=== PATIENT | male | born 1990 | race Caucasian/White ===

== ENCOUNTER 2025-03-02 16:51 | Inpatient (IN) | payer SELFPAY ==
[2025-03-02 17:43] VITALS: BMI 33.0
[2025-03-02] MEDS ORDERED: IBUPROFEN 600 MG TABLET (FP) PO PRN (19:49)
[2025-03-02] MEDS ORDERED: LOPERAMIDE HCL 2 MG CAPSULE PO PRN (19:49)
[2025-03-02] MEDS ORDERED: MAG HYDROX/AL HYDROX/SIMETH 30 ML UNIT-DOSE CUP PO PRN (19:49)
[2025-03-02] MEDS ORDERED: IBUPROFEN 400 MG TABLET (FP) PO PRN (19:49)
[2025-03-02] MEDS ORDERED: BENZOCAINE/MENTHOL (CHLORASEPTIC ) LOZENGE MM PRN (19:49)
[2025-03-02] MEDS ORDERED: POLYETHYLENE GLYCOL (HEALTHYLAX) 3350 17 GM PACKET PO PRN (19:49)
[2025-03-02] MEDS ORDERED: BENZONATATE 200 MG CAPSULE PO PRN (19:49)
[2025-03-02] MEDS ORDERED: ACETAMINOPHEN 325 MG TABLET (FP) PO PRN (19:49)
[2025-03-02] MEDS ORDERED: DICYCLOMINE HCL 10 MG CAPSULE PO PRN (19:49)
[2025-03-02] MEDS ORDERED: guaiFENesin 600 MG TABLET.ER (FP) PO PRN (19:49)
[2025-03-02] MEDS ORDERED: MAGNESIUM HYDROX 2400MG/30ML ORAL SUSPENSION 30 ML CUP PO PRN (19:49)
[2025-03-02] MEDS ORDERED: BISMUTH SUBSALICYLATE 524 MG/30 ML PO PRN (19:49)
[2025-03-02] MEDS ORDERED: NALOXONE (NARCAN) HCL 4 MG/0.1 ML SPRAY NS PRN (19:49)
[2025-03-02] MEDS ORDERED: ONDANSETRON *ODT* 4 MG TABLET ONE (20:09)
[2025-03-02] MEDS: ONDANSETRON *ODT* 4 MG TABLET SL PRN (20:10)
[2025-03-02] MEDS: levETIRAcetam 500 MG TABLET (FP) PO ONE (20:16)
[2025-03-02] MEDS: ASPIRIN 81 MG CHEWABLE TABLETS PO ONE (20:45)
[2025-03-02] MEDS ORDERED: ASPIRIN 81 MG CHEWABLE TABLETS ONE (20:45)
[2025-03-02] MEDS: METHOCARBAMOL 500 MG TABLET PO PRN (21:15)
[2025-03-02] MEDS: hydrOXYzine PAMOATE 25 MG CAPSULE (FP) PO PRN (21:15)
[2025-03-02] MEDS: levETIRAcetam 500 MG TABLET (FP) PO SCH (21:15)
[2025-03-02] MEDS: THIAMINE 100 MG TABLET PO SCH (22:51)
[2025-03-02] MEDS: MELATONIN 5 MG TABLETS PO SCH (22:51)
[2025-03-03] MEDS: PRENATAL VITAMINS W/ FOLIC ACID TABLET (FP) PO SCH (10:26)
[2025-03-03 10:31] LABS: MCHC 33.7 g/dl (32.3-36.5); MEAN CELL VOLUME 91.8 fl (79.0-92.2); MEAN PLT VOLUME 9.8 fl (9.4-12.4); RDW 15.3 % (12.0-15.6)
[2025-03-03 11:06] LABS: GLUCOSE,RANDOM 82 mg/dL (74-106); TOT PROT 7.1 g/dl (6.4-8.2)
[2025-03-03 11:09] LABS: ALK PHOS 83 U/L (40-150)
[2025-03-03 11:12] LABS: CREATININE 0.79 mg/dL (0.55-1.3); SGOT/AST 52 U/L (5-34); SGPT/ALT 67 U/L (0-55)
[2025-03-03 11:13] LABS: CO2 32 mmol/L (21-32)
[2025-03-03] MEDS: levETIRAcetam 500 MG TABLET (FP) PO SCH (23:50)
[2025-03-06] MEDS: PANTOPRAZOLE 40 MG TABLET PO SCH (14:52)
[2025-03-06 21:08] VITALS: RESP 16
[2025-03-07 08:40] VITALS: BP 129/88; PULSE 72; TEMP 98.1
== END 2025-03-07 10:28 | disposition home or self-care (01) | DRG 775 ==
LOC: YASAS 16:51 → Y6N 20:47
PROVIDERS: ADMIT Neuromusculoskeletal Medicine & OMM; ATTEND Counselor Addiction (Substance Use Disorder)
PROC: HZ2ZZZZ Detoxification Services for Substance Abuse Treatment (ICD-10-PCS; principal; 2025-03-02)
DX: F10.230 Alcohol dependence with withdrawal, uncomplicated (principal); F10.220 Alcohol dependence with intoxication, uncomplicated; D64.9 Anemia, unspecified; R34 Anuria and oliguria; R74.8 Abnormal levels of other serum enzymes; Z87.19 Personal history of other diseases of the digestive system
CPT/HCPCS: 36415; 80053; 80307; 82962; 85027; 86780; 93005; 93010; Q0162